=== PATIENT | female | born 1945 ===

== ENCOUNTER 2016-08-25 12:43 | Emergency (ER) | payer MEDICARE, OTHER ==
--- NOTE | 2016-08-25 13:55 | ED NURSING NOTES ---
Clinical Report - Nurses [facility] [address] [place] [address] 08/25/2016 12:47 Patient: INDIA SOL TRIAGE Triage time 13:Aug 25 2016. Acuity: LEVEL 4. Chief Complaint: (need leila taken from hernia repair). Alert. No acute distress. SEPSIS SCREEN: Sepsis Screen: negative. Negative (no infection suspected/documented). Heart rate greater than 90. Temperature not greater than 38.3 degrees C (101 degrees F). Respiratory rate not greater than 20. No acute mental status change. Systolic blood pressure not less than 90. Mean arterial pressure not less than 65. TERRELL COMA SCORE: Terrell Coma Scale: 15- eyes open spontaneously (4); best verbal response- oriented x 4 (5); best motor response- obeys commands (6). --13:27 Michelle Edward R.N. 13:23 08/25/16. BP: 109/73. HR: 114. RR: 16. O2 saturation: 97%. Temp: 98.2 F. Pain level now: 12/13. --13:27 Michelle Edward R.N. Weight: 98.8 kg stated. Height/Length: 62 inches Per Patient. BMI: 39.9. --13:27 Michelle Edward R.N. Medications albuterol MDI 2 puffs 3-4x/day prn . Hydrochlorothiazide Oral 25 mg, daily. Multivitamins Oral. NexIUM Oral 40 mg, daily. Singulair Oral 10 mg, daily. --13:24 Michelle Edward R.N. Gabapentin Oral. --13:24 Michelle Edward R.N. Allergies Ibuprofen.(nausea) --13:24 Michelle Edward R.N. History Arrived by private vehicle. Historian: patient. Accompanied by family. This started just prior to arrival. Treatment KARATE INSTRUCTOR: None. PAST MEDICAL HX: Immunizations: up-to-date. Denies current . SOCIAL HX: Former smoker, end date 06/2016. No alcohol use or drug use. No infectious disease exposure. SELF HARM ASSESSMENT: A self harm assessment was performed. The patient answered "no" to the question "Do you have thoughts of harming or killing yourself?". FALL RISK ASSESSMENT: Fall risk assessment completed. No fall risk identified. NUTRITIONAL RISK ASSESSMENT: The nutritional risk assessment revealed no deficiencies. FUNCTIONAL ASSESSMENT: Functional assessment: no impairments noted. LEARNING NEEDS ASSESSMENT: The learning needs assessment revealed no barriers. ABUSE ASSESSMENT: Abuse assessment: The patient was asked "Do you feel safe in your home?". SKIN INTEGRITY ASSESSMENT: Skin integrity risk assessment completed. No skin integrity risk identified. --13: Michelle Edward R.N. PROBLEMS: Abdominal Pain. Diverticulitis. Cancer of kidney, liver. Prior Injury, Same Area. Arthritis. Fall. Knee Injury. Sprain. Tetanus Status. LNMP - Last Normal Menstrual Period. Asthma . Hypertension. Chest Pain. Reflux. Otitis Media. --13: Michelle Edward R.N. ADDITIONAL SURGERIES: Appendectomy. Cholecystectomy. Colon surgery. Hernia Repair. Hysterectomy. --13: Michelle Edward R.N. Interventions ID band on patient. To room. --13: Michelle Edward R.N. PHYSICAL ASSESSMENT GENERAL / NEURO / PSYCH: Alert. Oriented X 4. Appears in no acute distress. HEENT: No facial asymmetry noted. Mucous membranes are pink. RESPIRATORY: Respirations not labored. CVS: Capillary refill less than 2 seconds. Pulses within normal limits. GI / : Abdomen soft. Abdominal tenderness (around surgical incision). SKIN: Skin is warm and dry. --: Michelle Edward R.N. NURSING PROGRESS NOTES Patient gowned. Head of bed elevated. Two patient identifiers checked. Call light placed in reach. Side rails up x 1. Bed placed in lowest position. Brakes of bed on. --: Michelle Edward R.N. ( pt states that she had high blood pressure yesterday.). --13: Michelle Edward R.N. DISPOSITION / DISCHARGE 14:16 08/25/16. Departure time: 1412. Condition at departure: improved and stable. ( LARASteveC aware of d/c HR). No learning barriers present. Discharge instructions provided and reviewed with the patient and family. Activity restrictions reviewed (no strenuous activity). Patient verbalized understanding. Written instructions provided in Thai. The patient was discharged by the physician. She was discharged home and accompanied by family. She left the Emergency Department ambulatory and via private vehicle. Family member driving. --14:16 Tank Castaneda R.N. 14:13 08/25/16. BP: 126/73. HR: 105. RR: 16. O2 saturation: 97% on room air. Pain level now 0/10. --14:16 Tank Castaneda R.N. Locked/Released at 08/25/2016 16:27 by Michelle Edward R.N.
--- NOTE | 2016-08-25 13:55 | ED NURSING NOTES ---
Clinical Report - Nurses Located Within [facility] [address] [place] [address] 08/25/2016 12:47 Patient: INDIA SOL TRIAGE Triage time 13:Aug 25 2016. Acuity: LEVEL 4. Chief Complaint: (need leila taken from hernia repair). Alert. No acute distress. SEPSIS SCREEN: Sepsis Screen: negative. Negative (no infection suspected/documented). Heart rate greater than 90. Temperature not greater than 38.3 degrees C (101 degrees F). Respiratory rate not greater than 20. No acute mental status change. Systolic blood pressure not less than 90. Mean arterial pressure not less than 65. TERRELL COMA SCORE: Terrell Coma Scale: 15- eyes open spontaneously (4); best verbal response- oriented x 4 (5); best motor response- obeys commands (6). --13:27 Michelle Edward R.N. 13:23 08/25/16. BP: 109/73. HR: 114. RR: 16. O2 saturation: 97%. Temp: 98.2 F. Pain level now: 12/13. --13:27 Michelle Edward R.N. Weight: 98.8 kg stated. Height/Length: 62 inches Per Patient. BMI: 39.9. --13:27 Michelle Edward R.N. Medications albuterol MDI 2 puffs 3-4x/day prn . Hydrochlorothiazide Oral 25 mg, daily. Multivitamins Oral. NexIUM Oral 40 mg, daily. Singulair Oral 10 mg, daily. --13:24 Michelle Edward R.N. Gabapentin Oral. --13:24 Michelle Edward R.N. Allergies Ibuprofen.(nausea) --13:24 Michelle Edward R.N. History Arrived by private vehicle. Historian: patient. Accompanied by family. This started just prior to arrival. Treatment CAT TENDER: None. PAST MEDICAL HX: Immunizations: up-to-date. Denies current . SOCIAL HX: Former smoker, end date 06/2016. No alcohol use or drug use. No infectious disease exposure. SELF HARM ASSESSMENT: A self harm assessment was performed. The patient answered "no" to the question "Do you have thoughts of harming or killing yourself?". FALL RISK ASSESSMENT: Fall risk assessment completed. No fall risk identified. NUTRITIONAL RISK ASSESSMENT: The nutritional risk assessment revealed no deficiencies. FUNCTIONAL ASSESSMENT: Functional assessment: no impairments noted. LEARNING NEEDS ASSESSMENT: The learning needs assessment revealed no barriers. ABUSE ASSESSMENT: Abuse assessment: The patient was asked "Do you feel safe in your home?". SKIN INTEGRITY ASSESSMENT: Skin integrity risk assessment completed. No skin integrity risk identified. --13: Michelle Edward R.N. PROBLEMS: Abdominal Pain. Diverticulitis. Cancer of kidney, liver. Prior Injury, Same Area. Arthritis. Fall. Knee Injury. Sprain. Tetanus Status. LNMP - Last Normal Menstrual Period. Asthma . Hypertension. Chest Pain. Reflux. Otitis Media. --13: Michelle Edward R.N. ADDITIONAL SURGERIES: Appendectomy. Cholecystectomy. Colon surgery. Hernia Repair. Hysterectomy. --13: Michelle Edward R.N. Interventions ID band on patient. To room. --13: Michelle Edward R.N. PHYSICAL ASSESSMENT GENERAL / NEURO / PSYCH: Alert. Oriented X 4. Appears in no acute distress. HEENT: No facial asymmetry noted. Mucous membranes are pink. RESPIRATORY: Respirations not labored. CVS: Capillary refill less than 2 seconds. Pulses within normal limits. GI / : Abdomen soft. Abdominal tenderness (around surgical incision). SKIN: Skin is warm and dry. --: Michelle Edward R.N. NURSING PROGRESS NOTES Patient gowned. Head of bed elevated. Two patient identifiers checked. Call light placed in reach. Side rails up x 1. Bed placed in lowest position. Brakes of bed on. --: Michelle Edward R.N. ( pt states that she had high blood pressure yesterday.). --13: Michelle Edward R.N. DISPOSITION / DISCHARGE 14:16 08/25/16. Departure time: 1412. Condition at departure: improved and stable. ( LARASteveC aware of d/c HR). No learning barriers present. Discharge instructions provided and reviewed with the patient and family. Activity restrictions reviewed (no strenuous activity). Patient verbalized understanding. Written instructions provided in Mongolian. The patient was discharged by the physician. She was discharged home and accompanied by family. She left the Emergency Department ambulatory and via private vehicle. Family member driving. --14:16 Tank Castaneda R.N. 14:13 08/25/16. BP: 126/73. HR: 105. RR: 16. O2 saturation: 97% on room air. Pain level now 0/10. --14:16 Tank Castaneda R.N. Locked/Released at 08/25/2016 16:27 by Michelle Edward R.N.
--- NOTE | 2016-08-25 13:55 | ED CLINICAL REPORT ---
Clinical Report - Physicians/Mid Levels [facility] [address] [place] [address] 08/25/2016 12:47 Patient: INDIA SOL Time Seen; initial patient contact. Arrived- By private vehicle. Historian- patient. HISTORY OF PRESENT ILLNESS Chief Complaint: STAPLE REMOVAL from abdominal hernia repair 2 weeks ago. Treated in emergency department (seen by surgeon 2 weeks ago). Previous emergency department treatment: (pt had abdominal hernia repair, missed her appointment with her surgeon, and he said to come to ER for removal.). The patient has no complaints since the procedure was performed. REVIEW OF SYSTEMS No fever, numbness or weakness. All systems otherwise negative, except as recorded above. PAST HISTORY See nurses notes. Tetanus immunization status is up-to-date. Problems: Abdominal Pain. Diverticulitis. Cancer of kidney, liver. Prior Injury, Same Area. Arthritis. Fall. Knee Injury. Sprain. Tetanus Status. LNMP - Last Normal Menstrual Period. Asthma . Hypertension. Chest Pain. Reflux. Otitis Media. Medications: Gabapentin Oral. albuterol MDI 2 puffs 3-4x/day prn . Hydrochlorothiazide Oral 25 mg, daily. Multivitamins Oral. NexIUM Oral 40 mg, daily. Singulair Oral 10 mg, daily. Allergies: Ibuprofen.(nausea). SOCIAL HISTORY No drug use. ADDITIONAL NOTES The nursing notes have been reviewed with agreement regarding the chief complaint, HPI, ROS, PMH and patient medications and allergies. PHYSICAL EXAM Vital Signs: 08/25/2016 14:13 BP: 126/73. HR: 105. RR: 16. O2 saturation: 97%. 08/25/2016 13:23 BP: 109/73. HR: 114. RR: 16. O2 saturation: 97%. Temp: 98.2 F. Pain level now: 8/10. Have been reviewed. Appearance: Alert. Oriented X3. Anxious. No acute distress. Skin: Mild tenderness to the abdomen. Healing wound. No warmth. No swelling. No drainage. No wound dehiscence. No lymphangitis. No erythema or cellulitis. Extremities: No lower extremity edema. PROGRESS AND PROCEDURES Suture Removal: Time: 1430. The wound is located on the abdomen. Examination of wound reveals normal healing, no tenderness and no infection. All leila removed by PA. No other treatment. Course of Care: Patient is stable. Physical exam findings are improved. Symptoms better. CLINICAL IMPRESSION Staple removal. Wound check. INSTRUCTIONS Wear elastic wrap as directed for two days as needed. No strenuous activity. No dietary restrictions. Your Current Medications: CONTINUE TAKING THE FOLLOWING MEDICATIONS: albuterol MDI 2 puffs 3-4x/day prn *. Gabapentin Oral. Hydrochlorothiazide Oral : 25 mg daily. Multivitamins Oral. NexIUM Oral : 40 mg daily. Singulair Oral : 10 mg daily. Follow-up: Follow up with your doctor as scheduled. Understanding of the discharge instructions verbalized by patient. (Electronically signed by Ana Lilia Styles PA-C 08/25/2016 20:02)
--- NOTE | 2016-08-25 13:55 | ED CLINICAL REPORT ---
Clinical Report - Physicians/Mid Levels [facility] [address] [place] [address] 08/25/2016 12:47 Patient: INDIA SOL Time Seen; initial patient contact. Arrived- By private vehicle. Historian- patient. HISTORY OF PRESENT ILLNESS Chief Complaint: STAPLE REMOVAL from abdominal hernia repair 2 weeks ago. Treated in emergency department (seen by surgeon 2 weeks ago). Previous emergency department treatment: (pt had abdominal hernia repair, missed her appointment with her surgeon, and he said to come to ER for removal.). The patient has no complaints since the procedure was performed. REVIEW OF SYSTEMS No fever, numbness or weakness. All systems otherwise negative, except as recorded above. PAST HISTORY See nurses notes. Tetanus immunization status is up-to-date. Problems: Abdominal Pain. Diverticulitis. Cancer of kidney, liver. Prior Injury, Same Area. Arthritis. Fall. Knee Injury. Sprain. Tetanus Status. LNMP - Last Normal Menstrual Period. Asthma . Hypertension. Chest Pain. Reflux. Otitis Media. Medications: Gabapentin Oral. albuterol MDI 2 puffs 3-4x/day prn . Hydrochlorothiazide Oral 25 mg, daily. Multivitamins Oral. NexIUM Oral 40 mg, daily. Singulair Oral 10 mg, daily. Allergies: Ibuprofen.(nausea). SOCIAL HISTORY No drug use. ADDITIONAL NOTES The nursing notes have been reviewed with agreement regarding the chief complaint, HPI, ROS, PMH and patient medications and allergies. PHYSICAL EXAM Vital Signs: 08/25/2016 14:13 BP: 126/73. HR: 105. RR: 16. O2 saturation: 97%. 08/25/2016 13:23 BP: 109/73. HR: 114. RR: 16. O2 saturation: 97%. Temp: 98.2 F. Pain level now: 8/10. Have been reviewed. Appearance: Alert. Oriented X3. Anxious. No acute distress. Skin: Mild tenderness to the abdomen. Healing wound. No warmth. No swelling. No drainage. No wound dehiscence. No lymphangitis. No erythema or cellulitis. Extremities: No lower extremity edema. PROGRESS AND PROCEDURES Suture Removal: Time: 1430. The wound is located on the abdomen. Examination of wound reveals normal healing, no tenderness and no infection. All leila removed by PA. No other treatment. Course of Care: Patient is stable. Physical exam findings are improved. Symptoms better. CLINICAL IMPRESSION Staple removal. Wound check. INSTRUCTIONS Wear elastic wrap as directed for two days as needed. No strenuous activity. No dietary restrictions. Your Current Medications: CONTINUE TAKING THE FOLLOWING MEDICATIONS: albuterol MDI 2 puffs 3-4x/day prn *. Gabapentin Oral. Hydrochlorothiazide Oral : 25 mg daily. Multivitamins Oral. NexIUM Oral : 40 mg daily. Singulair Oral : 10 mg daily. Follow-up: Follow up with your doctor as scheduled. Understanding of the discharge instructions verbalized by patient. (Electronically signed by Ana Lilia Styles PA-C 08/25/2016 20:02)
--- NOTE | 2016-08-25 20:02 | ED MAR SUMMARY ---
..... Medication Administration Record [facility] [address], [place] [id number] Patient: INDIA SOL Visit ID: [id number] 71y, F Weight: 98.8 kg Height/Length: 62 in BMI: 39.9 ALLERGIES: Ibuprofen
--- NOTE | 2016-08-25 20:02 | ED MED RECONCILIATION SUMMARY ---
Patient: INDIA SOL Medication Reconciliation Report [facility] VisitID: [id number] [address] [place] [address] 71y, F Registration Date/Time: 08/25/2016 Weight: 98.8 kg Height/Length: 62 in. BMI: 39.9 ALLERGIES: Ibuprofen The patient's Home Medications are listed below: CONTINUE TAKING THE FOLLOWING MEDICATIONS: albuterol MDI 2 puffs 3-4x/day prn Gabapentin Oral Hydrochlorothiazide Oral 25 mg, daily Multivitamins Oral NexIUM Oral 40 mg, daily Singulair Oral 10 mg, daily The source(s) of the original Home Medication information: Not obtained. The following Medications were given to the patient in the Emergency Department: None. The following Medications were prescribed to the patient: None.
--- NOTE | 2016-08-25 20:02 | ED DISCHARGE INSTRUCTIONS ---
Patient: INDIA SOL General Instructions [facility] VisitID: [id number] [address] [place] [address] 71y, F Registration Date/Time: 08/25/2016 Staple removal. Wound check. INSTRUCTIONS Wear elastic wrap as directed for two days as needed. No strenuous activity. No dietary restrictions. Your Current Medications: CONTINUE TAKING THE FOLLOWING MEDICATIONS: albuterol MDI 2 puffs 3-4x/day prn *. Gabapentin Oral. Hydrochlorothiazide Oral : 25 mg daily. Multivitamins Oral. NexIUM Oral : 40 mg daily. Singulair Oral : 10 mg daily. Follow-up: Follow up with your doctor as scheduled. Understanding of the discharge instructions verbalized by patient. ADDITIONAL INFORMATION Staple Removal (No Complication) You were seen today for staple removal. Your wound is healing as expected. It is unlikely that you will have any further problem. Home Care: Keep the wound clean and dry. Use a Band-Aid, if needed, to keep the wound from getting dirty for the next week. Wash the wound carefully with soap and water daily during the next week. You may shower and bathe as usual. Follow Up For Any Problems With Your Own Doctor. Get Prompt Medical Attention If Any Of The Following Occur: Increasing pain in the wound Redness, swelling or pus coming from the wound Fever of 100.4F (38C) or higher, or as directed by your healthcare provider You have been given the following additional information: Staple Removal, No Complication No strenuous activity. (Electronically signed by Ana Lilia Styles PA-C 08/25/2016 20:02)
--- NOTE | 2016-08-25 20:02 | ED DISCHARGE INSTRUCTIONS ---
Patient: INDIA SOL General Instructions [facility] VisitID: [id number] [address] [place] [address] 71y, F Registration Date/Time: 08/25/2016 Staple removal. Wound check. INSTRUCTIONS Wear elastic wrap as directed for two days as needed. No strenuous activity. No dietary restrictions. Your Current Medications: CONTINUE TAKING THE FOLLOWING MEDICATIONS: albuterol MDI 2 puffs 3-4x/day prn *. Gabapentin Oral. Hydrochlorothiazide Oral : 25 mg daily. Multivitamins Oral. NexIUM Oral : 40 mg daily. Singulair Oral : 10 mg daily. Follow-up: Follow up with your doctor as scheduled. Understanding of the discharge instructions verbalized by patient. ADDITIONAL INFORMATION Staple Removal (No Complication) You were seen today for staple removal. Your wound is healing as expected. It is unlikely that you will have any further problem. Home Care: Keep the wound clean and dry. Use a Band-Aid, if needed, to keep the wound from getting dirty for the next week. Wash the wound carefully with soap and water daily during the next week. You may shower and bathe as usual. Follow Up For Any Problems With Your Own Doctor. Get Prompt Medical Attention If Any Of The Following Occur: Increasing pain in the wound Redness, swelling or pus coming from the wound Fever of 100.4F (38C) or higher, or as directed by your healthcare provider You have been given the following additional information: Staple Removal, No Complication No strenuous activity. (Electronically signed by Ana Lilia Styles PA-C 08/25/2016 20:02)
--- NOTE | 2016-08-25 20:02 | ED MED RECONCILIATION SUMMARY ---
Patient: INDIA SOL Medication Reconciliation Report [facility] VisitID: [id number] [address] [place] [address] 71y, F Registration Date/Time: 08/25/2016 Weight: 98.8 kg Height/Length: 62 in. BMI: 39.9 ALLERGIES: Ibuprofen The patient's Home Medications are listed below: CONTINUE TAKING THE FOLLOWING MEDICATIONS: albuterol MDI 2 puffs 3-4x/day prn Gabapentin Oral Hydrochlorothiazide Oral 25 mg, daily Multivitamins Oral NexIUM Oral 40 mg, daily Singulair Oral 10 mg, daily The source(s) of the original Home Medication information: Not obtained. The following Medications were given to the patient in the Emergency Department: None. The following Medications were prescribed to the patient: None.
--- NOTE | 2016-08-25 20:02 | ED MAR SUMMARY ---
..... Medication Administration Record [facility] [address] [place], [place] [id number] Patient: INDIA SOL Visit ID: [id number] 71y, F Weight: 98.8 kg Height/Length: 62 in BMI: 39.9 ALLERGIES: Ibuprofen
== END 2016-08-25 14:12 | disposition home or self-care (01) ==
LOC: ED SRH 12:43
DX: Z48.02 Encounter for removal of sutures (principal); Z48.817 Encounter for surgical aftercare following surgery on the skin and subcutaneous tissue
CPT/HCPCS: 85049